=== PATIENT | male | born 1980 | race Hispanic/Latino ===

== ENCOUNTER 2020-09-04 13:59 | Emergency (ER) | payer BC, SELFPAY ==
--- NOTE | ~2020-09-04 | XR_ITS ---
EXAMINATION: XR finger 3rd RT min 2V INDICATION: Right third finger pain TECHNIQUE: Three views of the right third finger are obtained. COMPARISON: None available FINDINGS: There is no fracture, dislocation, or subluxation. No productive changes of bony healing ar e identified. The joint spaces are normal. There is mild soft tissue swelling of the third finger. IMPRESSION: 1. No acute osseous abnormality. Reviewed, dictated and finalized at location A. 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
[2020-09-04 14:13] VITALS: BP 137/76; PULSE 62; RESP 16; TEMP 36.4; O2SAT 99
--- NOTE | 2020-09-04 14:28 | ED.UPPEXIN ---
HPI - Extremity Injury (Upper) General Chief Complaint: Extremity Injury, Upper Stated Complaint: right 3rd finger infection Time Seen by Provider: 09/04/20 14:20 Source: patient and RN notes reviewed Mode of arrival: ambulatory Limitations: no limitations History of Present Illness HPI narrative: 40-year-old male presents with concern for injury to the tip of the third digit of the right hand. Reports 6 days ago he smashed the finger in a door. Reports the nail is broken. Reports pain, bruising. Denies purulent discharge, bleeding. MD complaint: injury to: right and finger Related Data Home Medications Medication Instructions Recorded Confirmed No Home Medications 09/04/20 09/04/20 Allergies Allergy/AdvReac Type Severity Reaction Status Date / Time No Known Allergies Allergy Verified 09/04/20 14:30 Review of Systems Review of Systems: Narrative: CONSTITUTIONAL: Denies malaise, chills, sweats, or fever. SKIN: Reports broken, darkened fingernail to the third digit of the right hand MUSCULOSKELETAL: Reports pain, bruising to the distal end of third digit of the right hand NEUROLOGIC: Denies numbness, weakness All systems reviewed & are unremarkable except as noted in HPI and below PMFSH Social History Social History Gender identity (if verbalized by the patient): Male Comments At time of signature, agree with nursing past medical, surgical, social and family history. There is no relevant family history pertinent to the presenting complaint Exam Narrative: Exam Narrative: GENERAL: Well-appearing, well-nourished, and in no acute distress. HEAD: Normocephalic EYES: PERRLA, conjunctivae clear NECK: Supple. CHEST: Speaks in full sentences. No respiratory distress. HEART: Regular rate and rhythm. Normal and equal peripheral pulses. EXTREMITIES: Third digit of the right hand has normal strength and sensation. 5/5 strength with digit flexion, extension. Range of motion normal. Mild distal edema and ecchymosis. Distal tenderness. Skin intact, nailbed disrupted. Normal digital cascade with flexion of fingers, median, ulnar and radial nerve intact. Normal sensation of each side of finger. Can perform 'okay' sign, 'cross over finger test of index and middle fingers' and 'thumbs up' sign. No scissoring. Normal thumb opposition. Good capillary refill and radial pulse. Distal capillary refill less than 3 seconds. SKIN: Warn, dry, intact, pink. Distal corner of nail bed lacerated, not involving surrounding finger, all portions of the nail are still attached to the nailbed. Subungual hematoma noted. No surrounding erythema, induration or other signs of infection noted NEURO: Alert and oriented x3. PSYCH: Normal mood and affect Course Course Emergency Course: Patient is aware of diagnosis, understands and agrees to treatment plan. Anticipatory guidance given. Patient agrees to follow-up as directed and is aware of reasons to seek care at the emergency department. Portions of this record may have been created with voice recognition software Vital Signs Vital signs: Vital Signs Temperature 97.6 F 09/04/20 14:13 Pulse Rate 62 09/04/20 14:13 Respiratory Rate 16 09/04/20 14:13 Blood Pressure 137/76 09/04/20 14:13 Pulse Oximetry 99 09/04/20 14:13 Temperature 97.6 F 09/04/20 14:13 Pulse Rate 62 09/04/20 14:13 Respiratory Rate 16 09/04/20 14:13 Blood Pressure 137/76 09/04/20 14:13 Pulse Oximetry 99 09/04/20 14:13 Reviewed. MDM - Extremity Injury (Upper) MDM Narrative Medical decision making narrative: Patients injury and pain is consistent with musculoskeletal etiology. No signs of neurological or vascular compromise on exam. Compartments and tissues are soft without signs of compartment syndrome. Subungual hematoma noted, however the break in the nail bed contraindicates trephination. Pain is felt appropriate for further evaluation on an outpatient basis. Imaging Data My impress
--- NOTE | 2020-09-04 15:08 | PC.NURSE ---
1450- Amanda epic manager#[id number]
== END 2020-09-04 15:05 | disposition home or self-care (01) ==
PROVIDERS: Emergency Provider Nurse Practitioner
DX: S67.192A Crushing injury of right middle finger, initial encounter (principal); W23.0XXA Caught, crushed, jammed, or pinched between moving objects, initial encounter
CPT/HCPCS: 29130; 73140; 99213; G0463